=== PATIENT | female | born 1975 | race Caucasian/White ===

== ENCOUNTER → 2022-06-02 | Outpatient (CLI) | payer OTHER ==
[2022-06-02 17:47] LABS: HCT 43.7 % (37.2-46.3); HGB 13.6 g/dL (12.0-15.0); MCH 24.8 pg (27.0-32.0); MCHC 31.1 g/dL (32.0-37.0); MCV 79.6 fL (80.0-97.0); Mean Platelet Volume 12.2 fL (9.5-12.2); NRBC Per 100 WBC 0 /100 WBCS (0.0-0.0); Platelet Count 399 X 10*3/uL (140-440); RBC 5.49 X 10*6/uL (4.10-5.20); WBC 13.91 X 10*3/uL (4.50-10.00)
[2022-06-02 17:56] LABS: African American GFR (CKD) 119.3 (60.0-200.0); Anion Gap 18.1 mmol/L (10.00-18.00); Blood Urea Nitrogen 10.6 mg/dL (9.0-27.0); Carbon Dioxide 21.1 mmol/L (20.0-27.5); Non-African American GFR(CKD) 102.9 (60.0-200.0); Potassium 4.2 mmol/L (3.5-5.5)
== END | disposition home or self-care (01) ==
LOC: LABPAT 13:06
PROVIDERS: ATTEND Internal Medicine
DX: Z01.812 Encounter for preprocedural laboratory examination (principal); R07.9 Chest pain, unspecified
CPT/HCPCS: 80051; 82565; 84520; 85027

== ENCOUNTER 2022-06-07 09:59 | Day surgery (SDC) | payer OTHER ==
[2022-06-03 09:09] VITALS: BMI 29.5
[~2022-06-07 09:59] MED LIST: ALPRAZolam 0.25 MG TAB PO PRN; ALPRAZolam 0.5 MG TAB PO PRN; ASPIRIN 325 MG TAB PO STA; NITROGLYCERIN SL TABS 0.4 MG TAB SUBLINGUAL PRN; SODIUM CHLORIDE 0.9% 1,000 ML in EMPTY BAG 1 BAG IV SCH
[2022-06-07] MEDS ORDERED: SODIUM CHLORIDE 0.9% 1,000 ML IV ONE (10:11)
[2022-06-07 10:32] LABS: Glucose,Whole Blood 130 mg/dL (70-110)
[2022-06-07 10:40] VITALS: RESP 16; TEMP 98.2
[2022-06-07 11:18] LABS: Anisocytosis Slight; Basophils % (A) 0 %; Eosinophils # (A) 0.1 k/uL (0-0.7); Eosinophils % (A) 1 %; HCT 44.7 % (34.0-46.0); HGB 13.7 gm/dL (11.4-16.0); Hypochromasia Moderate; Lymphocytes # (A) 3.3 k/uL (1.0-4.8); Lymphocytes % (A) 27 %; MCH 25.2 pg (25.0-35.0); MCHC 30.7 g/dL (31.0-37.0); MCV 82.1 fL (80.0-100.0); Mean Platelet Volume 9.3; Monocytes # (A) 0.7 k/uL (0-1.0); Monocytes % (A) 6 %; Neutrophils # (A) 7.6 k/uL (1.3-7.7); Neutrophils % (A) 63 %; Platelet Count 342 k/uL (150-450); RBC 5.44 m/uL (3.80-5.40); RDW 16.6 % (11.5-15.5); WBC 12.1 k/uL (3.8-10.6)
[2022-06-07] MEDS ORDERED: HEPARIN SODIUM 1,000 UN/ML (10ML VL) ONE (11:23)
[2022-06-07] MEDS ORDERED: fentaNYL (PF) 50 MCG/ML 2 ML AMP ONE (11:23)
[2022-06-07] MEDS ORDERED: fentaNYL (PF) 50 MCG/ML 2 ML AMP IV ONE (11:54)
[2022-06-07] MEDS ORDERED: MIDAZOLAM 2 MG/2 ML VIAL IV ONE ×2 (11:54)
[2022-06-07] MEDS ORDERED: LIDOCAINE 1% INJ 10MG/ML (5 ML VIAL-PF) SQ ONE (11:55)
[2022-06-07] MEDS ORDERED: VERAPAMIL SYRINGE (5 MG/10 ML) INTRAARTER ONE (11:56)
[2022-06-07] MEDS: HEPARIN SODIUM 1,000 UN/ML (10ML VL) IV ONE ×2 (12:01→12:17)
[2022-06-07] MEDS: NITROGLYCERIN 1000MCG/10ML SYRINGE INTRACORON ONE ×2 (12:19→12:24)
[2022-06-07] MEDS ORDERED: IOPAMIDOL-370 125ML BTL INJ ONE (12:32)
[2022-06-07] MEDS ORDERED: glipiZIDE 10 MG TAB PO STA (13:13)
[2022-06-07] MEDS ORDERED: PIOGLITAZONE 30 MG TAB PO STA (13:13)
[2022-06-07] MEDS ORDERED: RX INFO: IV CONTRAST WAS GIVEN 1 EACH MISC MISCELLANE PRN ×3 (13:27→17:10)
[2022-06-07] MEDS ORDERED: ATROPINE SULFATE 0.1 MG/ML 10ML SYRINGE IV PRN ×2 (13:29→17:10)
[2022-06-07] MEDS ORDERED: ZOLPIDEM 5 MG TAB PO PRN ×2 (13:29→17:10)
[2022-06-07] MEDS ORDERED: MAG HYDROX/AL HYDROX/SIMETH 30 ML CUP PO PRN ×2 (13:29→17:10)
[2022-06-07] MEDS ORDERED: SODIUM CHLORIDE 0.9% 1,000 ML IV SCH (13:30)
[2022-06-07 15:37] VITALS: BP 136/66
[2022-06-07 16:25] VITALS: PULSE 62
[2022-06-07] MEDS ORDERED: NITROGLYCERIN SL TABS 0.4 MG TAB SUBLINGUAL PRN (17:10)
--- NOTE | 2022-06-07 17:10 | P.PRCINT ---
Percutaneous Coronary Int. - Percutaneous Coronary Intervention Percutaneous Coronary Intervention: PROCEDURES PERFORMED: Left heart catheterization, bilateral coronary angiography, s/p PCI mid LAD with 3.25 x 18mm Xience CARROLL, post dilated with a 3.5mm NC balloon INDICATION: Previous history of CAD with PCI of the RCA, new-onset chest pain similar to prior angina worse over last 6 weeks consistent with unstable angina CONSENT:I have discussed the risks, benefits and alternative therapies for the above-mentioned procedure and for both sedation/analgesia as well as necessary blood product administration, if indicated, as they pertain to this patient. The patient has indicated understanding and acceptance of the risks and procedures discussed. PROCEDURE: After the risks, benefits and alternatives of the above mentioned procedure explained in detail with the patient, informed consent was obtained. Patient was taken to the catheterization lab and prepped and draped in usual fashion. 1% lidocaine was used to anesthetize the right radial artery. A 6- American sheath was placed in the right radial artery using modified Seldinger technique. Left coronary angiography was performed with a 5-American JL 3.5 catheter and right coronary angiography was performed with a 5-American JR5 catheter in various views. A 5-American FR5 catheter was inserted into the left ventricle and pressure measurements were obtained. The decision was made to perform PCI of the LAD. A 6-American CLS 3.5 guide was used to engage the left main. A 0.014 BMW wire was advanced to the distal LAD. Predilation was performed with a 2.5 x 12 mm balloon. Next a 3.25 x 18 mm Xience CARROLL was the plate just past the diagonal 1 branch of the mid LAD. The stent was postdilated with a 3.5 noncompliant balloon. The balloon and wire were removed and final angiograms were performed. Pre-intervention there is 95% mid LAD stenosis and TONY-3 flow and postintervention there was 0% percent stenosis and TONY-3 flow. The right radial sheath was removed and a TR band was placed with hemostasis achieved. The patient tolerated the procedure well. Patient was transported back to the post catheterization holding area in stable condition. Conscious Sedation: Patient was monitored under the direct supervision of vision of myself for conscious sedation using Versed and fentanyl for a total duration of 36 minutes HEMODYNAMICS: Aorta: 148/78 LV: 142/5, LVEDP 15 SELECTIVE CORONARY ARTERIOGRAPHY: LEFT MAIN: The left main is a large caliber vessel which bifurcates into the LAD and circumflex. There is no significant stenosis. LEFT ANTERIOR DESCENDING CORONARY ARTERY: LAD is a large caliber vessel which wraps around to the apex. There is a small to moderate caliber diagonal 1 branch which has a mid diagonal 80% stenosis. The mid LAD after the diagonal 1 branch has diffuse 30-50% stenosis and a more focal mid 95% stenosis. Otherwise there are mild luminal irregularities of the LAD. LEFT CIRCUMFLEX CORONARY ARTERY: Left circumflex is a moderate caliber vessel with mild luminal irregularities up to 20-30% mid circumflex stenosis. RIGHT CORONARY ARTERY: The right coronary artery is a large caliber vessel which gives off a PDA and PLV branch and is the dominant vessel. There is a mid RCA stent which is patent with mild luminal irregularities. FINAL IMPRESSION: 1. CAD as described above with mild luminal irregularities of the RCA and circumflex and a 95% mid LAD and 80% small caliber mid diagonal 1 stenosis 2. S/p PCI mid LAD with 3.25 x 18mm Xience CARROLL, post dilated with a 3.5mm NC balloon 3. Normal left sided filling pressures PLAN: 1. Aggressive risk factor modification per most recent ACC/AHA guidelines. 2. Continue dual antiplatelets with aspirin and Plavix for 12 months. 3. Recommend treating diagonal 1 branch medically unless patient has recurrent angina and may consider PCI however somewhat smaller caliber vessel.
[2022-06-07] MEDS ORDERED: ATORVASTATIN 20 MG TAB PO SCH (21:00)
[2022-06-07] MEDS ORDERED: METOPROLOL TARTRATE 25 MG TAB PO SCH (21:00)
[2022-06-08] MEDS ORDERED: ASPIRIN 81 MG PO SCH ×2 (09:00)
[2022-06-08] MEDS ORDERED: CLOPIDOGREL 75 MG TAB PO SCH ×2 (09:00)
[2022-06-08] MEDS ORDERED: lisinopriL 10 MG TAB PO SCH (09:00)
== END 2022-06-07 16:05 | disposition home or self-care (01) ==
LOC: CATHCVL 09:59
PROVIDERS: ATTEND Internal Medicine
DX: I25.10 Atherosclerotic heart disease of native coronary artery without angina pectoris (principal); I10 Essential (primary) hypertension; E78.5 Hyperlipidemia, unspecified; E11.9 Type 2 diabetes mellitus without complications; Z72.0 Tobacco use; Z20.822 Contact with and (suspected) exposure to COVID-19; I83.90 Asymptomatic varicose veins of unspecified lower extremity; Z79.84 Long term (current) use of oral hypoglycemic drugs; Z79.890 Hormone replacement therapy; Z79.899 Other long term (current) drug therapy
CPT/HCPCS: 93458; 85025; 81025; 87635; C1769 ×3; C9600; C1894; C1725 ×2; C1874; J2250; J2001; J3010; J1644; Q9967